=== PATIENT | male | born 1955 | race Caucasian/White ===

== ENCOUNTER 2017-06-30 13:49 | Emergency (ER) | payer MEDICAID, OTHER ==
--- NOTE | 2017-06-30 14:26 | RADIOLOGY REPORT (SQ) ---
EXAM DESCRIPTION: WRIST LEFT 3 VIEWS COMPLETED DATE/TIME: 06/30/2017 2:18 pm REASON FOR STUDY: fall COMPARISON: None. NUMBER OF VIEWS: Three views. TECHNIQUE: AP, lateral, and oblique radiographic images acquired of the left wrist. LIMITATIONS: None. FINDINGS: MINERALIZATION: Normal. BONES: There is an impacted fracture of distal radius with no angulation or significant displacement. On the AP view it appears that there is a coronal fracture component that extends to the articular surface. SOFT TISSUES: No soft tissue swelling. No foreign body. OTHER: No other significant finding. IMPRESSION: Impacted nondisplaced fracture of the distal radius. TECHNICAL DOCUMENTATION: JOB ID: [id number] [employer]- All Rights Reserved
[2017-06-30] MEDS ORDERED: OXYCODONE HCL SR 10 MG TABLET PO ONE (15:19)
--- NOTE | 2017-06-30 15:20 | ER Document Report ---
ED Hand/Wrist Injury - General Chief Complaint: Wrist Injury Stated Complaint: LEFT WRIST PAIN Time Seen by Provider: 06/30/17 15:05 Mode of Arrival: Ambulatory Information source: Patient Notes: Patient is a 61-year-old male who presents to the ER today for pain and swelling to his left wrist after falling yesterday, trying to catch himself by putting his left arm behind him, and injuring the left wrist in the process. Patient states that he just thought it was a sprain, so he placed a temporary skateboarding brace on his wrist last night but states that he cannot sleep all night because it does throbbed. He denies hitting his head or loss of consciousness. He denies any numbness or tingling. TRAVEL OUTSIDE OF THE [place] IN LAST 30 DAYS: No - Related Data Allergies/Adverse Reactions: No Known Allergies Allergy (Verified 06/30/17 14:09) Past Medical History - General Information source: Patient - Social History Smoking Status: Current Every Day Smoker Family History: None Pulmonary Medical History: Reports: Hx COPD Renal/ Medical History: Denies: Hx Peritoneal Dialysis Review of Systems - Review of Systems Constitutional: No symptoms reported EENT: No symptoms reported Cardiovascular: No symptoms reported Respiratory: No symptoms reported Gastrointestinal: No symptoms reported Genitourinary: No symptoms reported Male Genitourinary: No symptoms reported Musculoskeletal: See HPI Skin: No symptoms reported Hematologic/Lymphatic: No symptoms reported Neurological/Psychological: No symptoms reported Physical Exam - Vital signs Vitals: Temp Pulse Resp BP Pulse Ox 98.3 F 62 18 133/80 H 99 06/30/17 14:07 06/30/17 14:07 06/30/17 14:07 06/30/17 14:07 06/30/17 14:07 - Notes Notes: PHYSICAL EXAMINATION: GENERAL: In no acute distress. HEAD: Atraumatic, normocephalic. EYES: Pupils equal round and reactive to light, extraocular movements intact, sclera anicteric, conjunctiva are normal. NECK: Normal range of motion, supple without lymphadenopathy LUNGS: CTAB and equal. No wheezes rales or rhonchi. HEART: Regular rate and rhythm without murmurs ABDOMEN: Soft, no tenderness. No guarding, no rebound BACK: no vertebral tenderness, normal ROM GI/: no CVA tenderness EXTREMITIES: Decreased range of motion of the left wrist secondary to pain, tender to left medial and lateral wrist and edema noted, good capillary refill, good sensation no cyanosis. NEUROLOGICAL: Cranial nerves grossly intact. Normal sensory/motor exams. PSYCH: Normal mood, normal affect. SKIN: Warm, Dry, normal turgor, no rashes or lesions noted Course - Re-evaluation Re-evalutation: 06/30/17 16:50 Patient has an impacted distal radius fracture on x-ray. Not displaced otherwise. Patient was placed in finger traps for 15 minutes and then wrist was splinted. - Vital Signs Vital signs: Temp Pulse Resp BP Pulse Ox 98.3 F 62 18 133/80 H 99 06/30/17 14:07 06/30/17 14:07 06/30/17 14:07 06/30/17 14:07 06/30/17 14:07 Procedures - Immobilization Left Wrist Time completed: 16:51 Pre-Proc Neuro Vasc Exam: Normal Immobilizer type: Sugar tong Performed by: PCT Post-Proc Neuro Vasc Exam: Normal Alignment checked and good: Yes Discharge - Discharge Clinical Impression: Radius distal fracture Qualifiers: Encounter type: initial encounter Fracture type: closed Fracture morphology: unspecified fracture morphology Laterality: left Qualified Code(s): S52.502A - Unspecified fracture of the lower end of left radius, initial encounter for closed fracture Condition: Stable Disposition: HOME, SELF-CARE Additional Instructions: Return immediately for any new or worsening symptoms. Follow up with orthopedic doctor, call tomorrow to make followup appointment. Prescriptions: Oxycodone HCl [Oxycodone HCl 10 MG Tablet] 1 - 2 tab PO Q6H PRN #15 tablet PRN Reason: PAIN Referrals: TOMASA JIMENEZ MD [ACTIVE STAFF] - Follow up as needed
--- NOTE | 2017-06-30 17:10 | RADIOLOGY REPORT (SQ) ---
EXAM DESCRIPTION: WRIST LEFT 2 VIEWS COMPLETED DATE/TIME: 06/30/2017 4:56 pm REASON FOR STUDY: post reduction COMPARISON: 06/30/2017 NUMBER OF VIEWS: Two views. TECHNIQUE: AP and lateral radiographic images acquired of the left wrist. LIMITATIONS: None. FINDINGS: Two views of the left wrist in a splint show the alignment to remains satisfactory. IMPRESSION: Postreduction views of wrist. TECHNICAL DOCUMENTATION: JOB ID: [id number] [employer]- All Rights Reserved
[2017-06-30 17:41] VITALS: BP 129/92
== END 2017-06-30 17:41 | disposition home or self-care (01) ==
LOC: ER 13:49
PROC: 2W3DX1Z Immobilization of Left Lower Arm using Splint (ICD-10-PCS; principal; 2017-06-30)
DX: S52.502A Unspecified fracture of the lower end of left radius, initial encounter for closed fracture (principal); M25.532 Pain in left wrist; M79.89 Other specified soft tissue disorders; W19.XXXA Unspecified fall, initial encounter; F17.200 Nicotine dependence, unspecified, uncomplicated
CPT/HCPCS: 99283

== ENCOUNTER 2019-04-17 11:45 | Emergency (ER) | payer OTHER ==
--- NOTE | 2019-04-17 13:20 | ER Document Report ---
ED Medical Screen (RME) - General Chief Complaint: Groin Pain Stated Complaint: PAIN, SWELLING/POST HERNIA SURGERY Time Seen by Provider: 04/17/19 13:18 Mode of Arrival: Ambulatory Information source: Patient Notes: 63-year-old male presented to ED for complaint of right pelvic pain. He states that last month he had the mesh replaced on his right inguinal hernia repair. He states he ran into a door soon afterwards on Wednesday. He states since then his urine stream has been sideways and he has had more swelling and pain to the area. There is swelling to the area. Patient is alert oriented respirations regular and unlabored. He states he has a history of arthritis bad knees back shrapnel wounds multiple areas. He does use a vapor cigarettes and drinks occasionally. I have greeted and performed a rapid initial assessment of this patient. A comprehensive ED assessment and evaluation of the patient, analysis of test results and completion of medical decision making process will be conducted by an additional ED providers. Dictation of this chart was performed using voice recognition software; therefore, there may be some unintended grammatical errors. TRAVEL OUTSIDE OF THE [place] IN LAST 30 DAYS: No - Related Data Allergies/Adverse Reactions: No Known Allergies Allergy (Verified 06/30/17 14:09) Past Medical History - Social History Chew tobacco use (# tins/day): No Drug Abuse: None Pulmonary Medical History: Reports: Hx COPD Renal/ Medical History: Denies: Hx Peritoneal Dialysis Physical Exam - Vital signs Vitals: Temp Pulse Resp BP Pulse Ox 97.7 F 76 18 143/73 H 100 04/17/19 11:58 04/17/19 11:58 04/17/19 11:58 04/17/19 11:58 04/17/19 11:58 Course - Vital Signs Vital signs: Temp Pulse Resp BP Pulse Ox 97.7 F 76 18 143/73 H 100 04/17/19 11:58 04/17/19 11:58 04/17/19 11:58 04/17/19 11:58 04/17/19 11:58
[2019-04-17 13:54] LABS: AMORPHOUS SEDIMENT,URINE TRACE /HPF
[2019-04-17 13:54] LABS: ABSOLUTE LYMPHOCYTES (AUTO) 0.4 10^3/uL (0.5-4.7); ABSOLUTE MONOCYTES (AUTO) 0.4 10^3/uL (0.1-1.4); ABSOLUTE NEUT (AUTO) 3.5 10^3/uL (1.7-8.2); BASOPHILS % (AUTO) 0.7 % (0-2); EOSINOPHILS % (AUTO) 1.1 % (0-6); HEMATOCRIT 44.2 % (37.9-51.0); MEAN CORPUSCULAR HEMOGLOBIN 30.5 pg (27.0-33.4); MEAN CORPUSCULAR VOLUME 90 fl (80-97); MONOCYTES % (AUTO) 9.1 % (3-13); PLATELET COUNT 161 10^3/uL (150-450); RED BLOOD COUNT 4.92 10^6/uL (4.35-5.55); SEGMENTED NEUTROPHILS % (AUTO) 79.1 % (42-78); TOTAL CELLS COUNTED % (AUTO) 100 %; WHITE BLOOD COUNT 4.4 10^3/uL (4.0-10.5)
[2019-04-17 13:55] LABS: APPEARANCE,URINE CLOUDY; BILIRUBIN,URINE MODERATE (NEGATIVE); COLOR,URINE AMBER; GLUCOSE, URINE NEGATIVE (NEGATIVE); KETONES,URINE NEGATIVE (NEGATIVE); PROTEIN,URINE >=500 mg/dL (NEGATIVE); URINE SPECIFIC GRAVITY 1.032
[2019-04-17 13:56] LABS: LEUKOCYTE ESTERASE,URINE TRACE (NEGATIVE); NITRITE,URINE NEGATIVE (NEGATIVE)
[2019-04-17 14:14] LABS: ALANINE AMINOTRANSFERASE 35 U/L (21-72); ALBUMIN 4.5 g/dL (3.5-5.0); ALKALINE PHOSPHATASE 56 U/L (38-126); ANION GAP 6 (5-19); ASPARTATE AMINO TRANSFERASE 30 U/L (17-59); BILIRUBIN,DIRECT 0.2 mg/dL (0.0-0.4); BILIRUBIN,TOTAL 0.8 mg/dL (0.2-1.3); BLOOD UREA NITROGEN 16 mg/dL (7-20); CALCIUM 9.5 mg/dL (8.4-10.2); CARBON DIOXIDE 30 mmol/L (22-30); CHLORIDE 102 mmol/L (98-107); GLUCOSE 100 mg/dL (75-110); POTASSIUM 4.4 mmol/L (3.6-5.0)
--- NOTE | 2019-04-17 17:01 | RADIOLOGY REPORT (SQ) ---
EXAM DESCRIPTION: U/S NON-OB PELVIS LTD W/O DOP COMPLETED DATE/TIME: 04/17/2019 4:35 pm REASON FOR STUDY: Swelling to the site of right inguinal hernia mesh COMPARISON: None. TECHNIQUE: Dynamic and static grayscale images acquired of the right inguinal region transabdominal approach and recorded on PACS. Additional selected color Doppler and spectral images recorded. LIMITATIONS: None. FINDINGS: Patient has had recent right inguinal surgery for hernia repair. In the right inguinal kumar bcutaneous fat, there are 2 bandlike multi-septated fluid collections, 3 x 1 x 1 cm in size, and 2.6 x 2 x 1 cm. These are superficial to the mesh along the inguinal canal has shown on cine loop images . These could represent small hematomas. Abscess could not entirely be excluded. No recurrent aracelis ia by ultrasound. IMPRESSION: Right inguinal region demonstrates a grossly intact right inguinal hernia repair. There are 2 fluid collections in the right inguinal subcutaneous fat. These could represent small seromas , or hematomas. Abscess could not entirely be excluded. TECHNICAL DOCUMENTATION: JOB ID: [id number] [employer]- All Rights Reserved Rev-02/25 Reading location - IP/workstation name: [email or web address]
--- NOTE | 2019-04-17 18:07 | ER Document Report ---
HPI - HPI Patient complains to provider of: right groin pain Time Seen by Provider: 04/17/19 13:18 Onset/Duration: Gradual, Intermittent Quality of pain: Achy Severity: Mild Pain Level: 2 Context: 63 yr old male pt with the listed pmh, here for intermittent pain over his right groin incision where he had a right inguinal herniorrhaphy done for a right inguinal hernia 03-31-[address] recinos, since his surgery, but worse over the last several days after he accidentally bumped into the side of a door and hit the area gently on the edge of the door. states the area had a small amt clear drainage immediately after it happened but none since. states he has also has some mild urinary frequency, but no other urinary sx. no hx of diabetes. no other changes in meds or diet. states sx controlled some with ibuprofen but not really and he needs something stronger. 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 no other trauma or injury. he hasn't f/u with his surgeon since he was cleared post operatively per pt. no heavy lifting or swelling in the area or concern for recurrent hernias. normal bms. no other uti sx. no testicular pain/swelling, penile dc/rash/lesions, or concerns for stds. denies pain anywhere else. no abd pain. good po intake. no abd surgeries unless otherwise noted. no recent abx or steroids. hasn't taken anything else for sx. no hx of gerd, gb dz, pancreatitis, gi bleed, ulcers, ibs, renal stones or crohns. no sick contacts. no uri sx. no rash. no fevers. no bleeding. pt able to walk. no excessive nsaid use or etoh. no recent illness. denies changes in color or caliber of stool. no other associated sx. Associated Symptoms: denies: Chest pain, Diarrhea, Fever, Hurts to breath, Leg swelling, Nausea, Vomiting, Shortness of breath, Sweating, Weakness Exacerbated by: Movement Relieved by: Remaining still Similar symptoms previously: Yes Recently seen / treated by doctor: No - ROS Systems Reviewed and Negative: Yes All other systems reviewed and negative - to include 10, unless mentioned in the hpi Past Medical History - General Information source: Patient - Social History Smoking Status: Former Smoker Chew tobacco use (# tins/day): No Frequency of alcohol use: unknown Drug Abuse: None Lives with: Alone Family History: None Patient has suicidal ideation: No Patient has homicidal ideation: No Pulmonary Medical History: Reports: Hx COPD - not on o2 Neurological Medical History: Denies: Hx Cerebrovascular Accident, Hx Migraine, Hx Seizures Endocrine Medical History: Denies: Hx Diabetes Mellitus Type 1, Hx Diabetes Mellitus Type 2, Hx Hyperthyroidism, Hx Hypothyroidism Renal/ Medical History: Reports: Other - erectile dysfunction-prn viagra. Denies: Hx Benign Prostatic Hyperplasia, Hx End Stage Renal Disease, Hx Epididymitis, Hx Hemodialysis, Hx Hydrocele, Hx Kidney Stones, Hx Peritoneal Dialysis, Hx Renal Insufficiency, Hx Testicular Torsion, Hx Varicocele Malignancy Medical History: Reports None GI Medical History: Reports: None Musculoskeletal Medical History: Reports Hx Arthritis Skin Medical History: Reports None Infectious Medical History: Reports: None Past Surgical History: Reports: Hx Herniorrhaphy - right inguinal herniorrhaphy with mesh on 03-31-[address] recinos - Immunizations Immunizations up to date: Yes Vertical Provider Document - CONSTITUTIONAL Notes: >>>> PHYSICAL_EXAM: GENERAL_APPEARANCE: well_nourished, alert, cooperative, no_acute_distress, no obvious_discomfort. Pleasant, middle aged to elderly white male, smiling, speaking in full sentences, easily sitting up, in no sign of pain or resp distress, nontoxic, initially during my exam he appeared upset, angry, and unhappy with his care and wait time, which i did apologize for as it was a busy day in the ER, he was then pleasant towards me VITALS: reviewed, see vital signs table. HEAD: normocephalic. atraumatic. no resendiz signs. no raccoon eyes. EYES: PERRL, EOMI, (-)scleral icterus. NOSE: no_nasal_discharge. MOUTH: (-)decreased moisture. THROAT: no_tonsilar_inflammation/hypertrophy/exudate. no lymphadenopathy NECK: supple, no_neck_tenderness, full rom. full strength. no meningeal signs. BACK: no_back_tenderness. CHEST_WALL: no_chest_tenderness. LUNGS: no_wheezing, (-)accessory muscle use, good air exchange bilateral. HEART: normal_rate, normal_rhythm,, ABDOMEN: normal_BS, soft, abdomen-diffuse non-tender, (-)guarding, (-)rebound, no distension or peritoneal signs. neg murphys. neg mcburneys. neg heel strike. neg obturator. neg psoas. neg rovsign. no cva tenderness GENITALS: penis and testicular exam deferred as pt denies any lesions, swelling, pain, or complaints involving those. his right groin incision was examined and the incision was c/d/i and without complication or dehiscence. i do not palpate a drainable fluid collection or any grossly visible swelling. no lymphadenopathy. no hernias. no erythema, induration, fluctuation, bleeding, streaking, or discharge. no sign of cellulitis or complication. no bruising either or overlying skin changes to suggest trauma. RECTAL: deferred EXTREMITIES: strength 5/5 in all_extremities, good pulses in all_extremities, no_edema, no_swelling\tenderness. full rom. normal gait. brisk cap refill. good hand blackener. SKIN: warm, dry, good_color, no rash. no grossly visible overlying skin changes to suggest trauma unless otherwise noted. NEURO: motor_intact, sensory_intact. cranial nerves 2-12 intact, cerebellar fxn intact MENTAL_STATUS: normal_affect, speech_clear, oriented_X_3, responds_appropriately to questions. - INFECTION CONTROL TRAVEL OUTSIDE OF THE [place] IN LAST 30 DAYS: No Course - Re-evaluation Re-evalutation: pt here for post op right groin pain for the last near month, worse over the last few days after he bumped his right inguinal hernia mesh repair site on a door accidentally several days ago. had some clear drainage then none since. no purulence or bleeding or dehiscence. just persistent yet intermittent pain. hasn't f/u with his surgeon or any one for this and per pt was cleared by surgery for this; however, i do not have access to these records for review. his labs were unremarkable. ucx pending. advised will call with any abnormal results that require change in plan of care. triage note stated he had problems urinating, he tells me he has some frequency but no other urinary issues. he denies concerns for stds and doesn't want prophylactic tx. denies penile dc or testicular pain/swelling. his triage pelvic US showed two small fluid collections over the hernia mesh repair site that could be small hematomas vs seromas but was otherwise neg for any complication or anything acute per rad and reviewed by myself. he has no overlying skin changes or palpable fluid collection or lymph nodes or hernia on exam. no sign of cellulitis. the incision is c/d/i and without dehiscence. he apparently wasn't happy with his wait time and left the ed prior to me signing up to go see him and went outside and took some ibuprofen he had in his car which helped and then came back in. 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 he stated his pain was improved after taking that. he didn't want anything else for pain. pt informed of his findings. he has already gotten a few scripts of vicodin in the last month along with ultram which he didn't divulge initially and states he has only been taking ibuprofen. case discussed with ed attending, dr casas, who advised against any further narcotic pain meds at this time which i agree also with and dr casas advised he can cont warm compresses to the area and cont ibuprofen and he needs to drink more fluids/water. dr casas advised no further workup indicated at this time and pt needed to f/u closely with surgeon/pcp/urology for recheck. pt advised of this. advised no heavy lifting. he denies prior prostate issues. endorses normal bms. he has no abd ttp on exam. he is tolerating po well and well appearing. he wasn't happy he wasn't getting narcotic pain meds per nursing at tx and stormed out of the er per nursing report in no sign of pain what so ever. this behavior is concerning for drug seeking behavior. advised to drink plenty of water. will refill his ibuprofen 600mg tid. advised medication precautions with this. advised no other nsaids with this. warm compresses to the area. advised to f/u with pcp/urology/surgery in 1-2 days. return for any worsening symptoms. vss. well appearing. satting well on ra. neurononfocal. pt understands and agrees to plan but again was unhappy with his wait time and lack of narcotic prescription at tx. i did apologize to pt for his wait time when i went in to examine the pt. he initially was angry but then after i took the time to listen to him and hear his concerns he became and remained pleasant towards myself and was smiling and teresa ghing and no longer appeared angry when i left the room after informing him of his results, my diagnosis, and intended plan of care. On reexam, pt remained stable. nontoxic. well appearing. pain controlled. tolerating po. requesting to go home. neurononfocal. case discussed with ER Attending, Dr. casas, who directed and agrees with plan of care and advised no further workup indicated at this time and pt is stable for dc home with close f/u with pcp/specialist. Documentation achieved through voice recording which my lead to some occasional accidental typographical errors. Extensive efforts have been made to proof read documentation to make sure these are the least as possible. Category Date Time Status U/S NON-OB PELVIS LTD W/O DOP [US] Stat Exams 04/17/19 13:18 Completed CBC WITH DIFF [HEME] Stat Lab 04/17/19 13:27 Completed COMPREHENSIVE METABOLIC PANEL [CHEM] Stat Lab 04/17/19 13:27 Completed URINALYSIS [URIN] Stat Lab 04/17/19 13:24 Completed URINE CULTURE [MC] Stat Lab 04/17/19 13:24 Completed - Vital Signs Vital signs: Temp Pulse Resp BP Pulse Ox 97.7 F 76 18 143/73 H 100 04/17/19 11:58 04/17/19 11:58 04/17/19 11:58 04/17/19 11:58 04/17/19 11:58 Temp Pulse Pulse Resp BP BP Pulse Ox 04/17/19 19:00 97.7 F 66 16 134/87 H 97 04/17/19 11:58 97.7 F 76 18 143/73 H 100 - Laboratory Result Diagrams: 04/17/19 13:27 04/17/19 13:27 Laboratory results interpreted by me: 04/17/19 04/17/19 13:24 13:27 Seg Neutrophils % 79.1 H Lymphocytes % 10.0 L Absolute Lymphocytes 0.4 L Urine Protein >=500 H Urine Bilirubin MODERATE H Urine Urobilinogen 2.0 H Ur Leukocyte Esterase TRACE H Labs- Entire Visit 04/17/19 04/17/19 04/17/19 13:24 13:27 13:27 WBC 4.4 RBC 4.92 Hgb 15.0 Hct 44.2 MCV 90 MCH 30.5 MCHC 34.0 RDW 14.0 Plt Count 161 Seg Neutrophils % 79.1 H Lymphocytes % 10.0 L Monocytes % 9.1 Eosinophils % 1.1 Basophils % 0.7 Absolute Neutrophils 3.5 Absolute Lymphocytes 0.4 L Absolute Monocytes 0.4 Absolute Eosinophils 0.0 Absolute Basophils 0.0 Sodium 138.4 Potassium 4.4 Chloride 102 Carbon Dioxide 30 Anion Gap 6 BUN 16 Creatinine 0.55 Est GFR ( Amer) > 60 Est GFR (Non-Af Amer) > 60 Glucose 100 Calcium 9.5 Total Bilirubin 0.8 Direct Bilirubin 0.2 Neonat Total Bilirubin Not Reportable Neonat Direct Bilirubin Not Reportable Neonat Indirect Bili Not Reportable AST 30 ALT 35 Alkaline Phosphatase 56 Total Protein 7.0 Albumin 4.5 Urine Color KAMRYN Urine Appearance CLOUDY Urine pH 9.0 Ur Specific [place] 1.032 Urine Protein >=500 H Urine Glucose (UA) NEGATIVE Urine Ketones NEGATIVE Urine Blood NEGATIVE Urine Nitrite NEGATIVE Urine Bilirubin MODERATE H Urine Urobilinogen 2.0 H Ur Leukocyte Esterase TRACE H Urine RBC (Auto) 2 Squamous Epi Cells Auto <1 Amorphous Sediment Auto TRACE Urine Mucus (Auto) RARE Urine Ascorbic Acid NEGATIVE - Diagnostic Test Radiology reviewed: Image reviewed, Reports reviewed Radiology results interpreted by me: Pelvis Ultrasound 04/17/19 13:18 IMPRESSION: Right inguinal region demonstrates a grossly intact right inguinal hernia repair. There are 2 fluid collections in the right inguinal subcutaneous fat. These could represent small seromas or hematomas. Abscess could not entirely be excluded. Discharge - Discharge Clinical Impression: Post-operative pain, Right groin pain Condition: Good Disposition: HOME, SELF-CARE Instructions: Hernia ([facility]) Additional Instructions: Follow-up with PCP/surgeon 1 to 2 days. Return for any worsening symptoms. Do not take any other NSAIDs with the ibuprofen. Warm compresses to the area. We will call you with any abnormal results as discussed that require change in plan of care. no heavy lifting. Continue postop instructions as per your surgeon. drink plenty of water Prescriptions: Ibuprofen [Motrin 600 mg Tablet] 600 mg PO Q8 PRN #24 tablet PRN Reason: For Pain Referrals: [facility] [Primary [facility]] - Follow up as needed
[2019-04-17 19:48] VITALS: BP 134/87
== END 2019-04-17 19:35 | disposition home or self-care (01) ==
LOC: ER 11:45
DX: G89.18 Other acute postprocedural pain (principal); R10.30 Lower abdominal pain, unspecified; R35.0 Frequency of micturition; J44.9 Chronic obstructive pulmonary disease, unspecified; Z87.891 Personal history of nicotine dependence
CPT/HCPCS: 36415; 76857; 80053; 81001; 85025; 87086; 99284

== ENCOUNTER 2019-11-16 10:17 | Emergency (ER) | payer OTHER ==
[2019-11-16] MEDS ORDERED: NORMAL SALINE 1000 ML 1,000 ML IV ONE (11:06)
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
--- NOTE | 2019-11-16 12:21 | RADIOLOGY REPORT (SQ) ---
EXAM DESCRIPTION: WRIST RIGHT 3 VIEWS COMPLETED DATE/TIME: 11/16/2019 11:46 am REASON FOR STUDY: trauma COMPARISON: None. NUMBER OF VIEWS: Three views. TECHNIQUE: AP, lateral, and oblique radiographic images acquired of the right wrist. LIMITATIONS: None. FINDINGS: MINERALIZATION: Normal. BONES: Transverse fracture of the distal radius with volar angulation. Oblique nondisplaced fracture of the distal ulna. SOFT TISSUES: No soft tissue swelling. No foreign body. OTHER: No other significant finding. IMPRESSION: Fractures of the radius and ulna. TECHNICAL DOCUMENTATION: JOB ID: [id number] [employer]- All Rights Reserved Reading location - IP/workstation name: [email or web address]
--- NOTE | 2019-11-16 12:21 | RADIOLOGY REPORT (SQ) ---
EXAM DESCRIPTION: HAND RIGHT 3 VIEWS COMPLETED DATE/TIME: 11/16/2019 11:46 am REASON FOR STUDY: trauma COMPARISON: None. EXAM PARAMETERS: NUMBER OF VIEWS: Three views. TECHNIQUE: AP, lateral and oblique radiographic images acquired of the right hand. LIMITATIONS: None. FINDINGS: MINERALIZATION: Normal. BONES: Old 5th metacarpal fracture. On the oblique view it appears that there is a lucent line in th e head of the 5th metacarpal. JOINTS: No effusions. SOFT TISSUES: No soft tissue swelling. No foreign body. OTHER: No other significant finding. IMPRESSION: Cannot exclude a nondisplaced fracture in the head of the 5th metacarpal. TECHNICAL DOCUMENTATION: JOB ID: [id number] [employer]- All Rights Reserved Reading location - IP/workstation name: [email or web address]
[2019-11-16 12:38] LABS: ABSOLUTE EOSINOPHILS # (AUTO) 0.1 10^3/uL (0.0-0.6); ABSOLUTE LYMPHOCYTES (AUTO) 0.7 10^3/uL (0.5-4.7); ABSOLUTE MONOCYTES (AUTO) 0.9 10^3/uL (0.1-1.4); ABSOLUTE NEUT (AUTO) 5.9 10^3/uL (1.7-8.2); BASOPHILS % (AUTO) 0.5 % (0-2); EOSINOPHILS % (AUTO) 0.9 % (0-6); HEMATOCRIT 39.2 % (37.9-51.0); HEMOGLOBIN 14.2 g/dL (13.5-17.0); INTERNATIONAL RATION (INR) 1.14; LYMPHOCYTES % (AUTO) 8.7 % (13-45); MEAN CORPUSCULAR HEMOGLOBIN 32.3 pg (27.0-33.4); MEAN CORPUSCULAR HGB CONC 36.1 g/dL (32.0-36.0); MEAN CORPUSCULAR VOLUME 90 fl (80-97); MONOCYTES % (AUTO) 11.4 % (3-13); PLATELET COUNT 146 10^3/uL (150-450); PROTHROMBIN TIME 14.7 SEC (11.4-15.4); RED BLOOD COUNT 4.38 10^6/uL (4.35-5.55); RED CELL DISTRIBUTION WIDTH 13.6 % (11.5-14.0); SEGMENTED NEUTROPHILS % (AUTO) 78.5 % (42-78); TOTAL CELLS COUNTED % (AUTO) 100 %; WHITE BLOOD COUNT 7.5 10^3/uL (4.0-10.5)
[2019-11-16 12:52] LABS: ALBUMIN 4.5 g/dL (3.5-5.0); ALKALINE PHOSPHATASE 58 U/L (38-126); ANION GAP 10 (5-19); ASPARTATE AMINO TRANSFERASE 57 U/L (17-59); BILIRUBIN,TOTAL 1.1 mg/dL (0.2-1.3); BLOOD UREA NITROGEN 27 mg/dL (7-20); CALCIUM 9.6 mg/dL (8.4-10.2); CARBON DIOXIDE 24 mmol/L (22-30); CHLORIDE 105 mmol/L (98-107); GLUCOSE 104 mg/dL (75-110); POTASSIUM 3.6 mmol/L (3.6-5.0); TOTAL PROTEIN 7.1 g/dL (6.3-8.2)
[2019-11-16 12:54] LABS: ALCOHOL < 10 mg/dL (NONE DETECTED)
[2019-11-16] MEDS ORDERED: LIDOCAINE 2% INJ (20 MG/ML) 20 ML MDV INJ ONE (14:24)
[2019-11-16] MEDS ORDERED: HYDROMORPHONE HCL INJ/PF 2 MG/ML AMPULE IV ONE (14:24)
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
--- NOTE | 2019-11-16 16:34 | RADIOLOGY REPORT (SQ) ---
EXAM DESCRIPTION: CT HEAD WITHOUT COMPLETED DATE/TIME: 11/16/2019 3:33 pm REASON FOR STUDY: trauma COMPARISON: CT facial bones same date TECHNIQUE: Axial images acquired through the brain without intravenous contrast. Images reviewed wi th bone, brain and subdural windows. Additional sagittal and coronal reconstructions were generated. Images stored on PACS. All CT scanners at this facility use dose modulation, iterative reconstruction, and/or weight based d osing when appropriate to reduce radiation dose to as low as reasonably achievable (ALARA). [facility]: Dose Right [facility]: CareDose [facility]: Dose Right [facility]: Teradose 4D [facility]: [employer] RADIATION DOSE: 53 mGy LIMITATIONS: Motion artifact FINDINGS: VENTRICLES: Normal size and contour. CEREBRUM: No masses. No hemorrhage. No midline shift. No evidence for acute infarction. Normal gra y/white matter differentiation. No areas of low density in the white matter. CEREBELLUM: No masses. No hemorrhage. No alteration of density. No evidence for acute infarction. EXTRAAXIAL SPACES: No fluid collections. No masses. ORBITS AND GLOBE: No intra- or extraconal masses. Normal contour of globe without masses. CALVARIUM: No fracture. PARANASAL SINUSES: No fluid or mucosal thickening. SOFT TISSUES: No mass or hematoma. OTHER: Old nasal bone fractures IMPRESSION: Motion artifact. No acute findings EVIDENCE OF ACUTE STROKE: NO. COMMENT: Quality ID # 436: Final reports with documentation of one or more dose reduction techniques (e.g., Automated exposure control, adjustment of the mA and/or kV according to patient size, use of iterative reconstruction technique) TECHNICAL DOCUMENTATION: JOB ID: [id number] [employer]- All Rights Reserved Reading location - IP/workstation name: [email or web address]
--- NOTE | 2019-11-16 16:35 | RADIOLOGY REPORT (SQ) ---
EXAM DESCRIPTION: CT CERVICAL SPINE WITHOUT COMPLETED DATE/TIME: 11/16/2019 3:33 pm REASON FOR STUDY: trauma COMPARISON: CT brain and facial bones same date TECHNIQUE: Axial images acquired through the cervical spine without intravenous contrast. Images re viewed with lung, soft tissue and bone windows. Reconstructed coronal and sagittal MPR images review ed. Images stored on PACS. All CT scanners at this facility use dose modulation, iterative reconstruction, and/or weight based d osing when appropriate to reduce radiation dose to as low as reasonably achievable (ALARA). [facility]: Dose Right [facility]: CareDose [facility]: Dose Right [facility]: Teradose 4D [facility]: [employer] RADIATION DOSE: CT Rad equipment meets quality standard of care and radiation dose reduction techniq ues were employed. CTDIvol: 20.8 - 53.2 mGy. DLP: 3287 mGy-cm. mGy. LIMITATIONS: Motion artifact FINDINGS: ALIGNMENT: Anatomic. MINERALIZATION: Normal. VERTEBRAL BODIES: No fractures or dislocation. DISCS: No significant disc disease. FACETS, LATERAL MASSES, POSTERIOR ELEMENTS: No fractures. No dislocation. No acute findings. HARDWARE: None in the spine. VISUALIZED RIBS: No fractures. LUNG APICES AND SOFT TISSUES: No significant or acute findings. OTHER: No other significant finding. IMPRESSION: Mild motion artifact. No acute findings TECHNICAL DOCUMENTATION: JOB ID: [id number] Quality ID # [id number]: Final reports with documentation of one or more dose reduction techniques (e.g., Au tomated exposure control, adjustment of the mA and/or kV according to patient size, use of iterative reconstruction technique) 2010 [employer]- All Rights Reserved Reading location - IP/workstation name: [email or web address]
--- NOTE | 2019-11-16 16:40 | RADIOLOGY REPORT (SQ) ---
EXAM DESCRIPTION: CT FACIAL AREA WITHOUT COMPLETED DATE/TIME: 11/16/2019 3:33 pm REASON FOR STUDY: trauma COMPARISON: CT brain, CT cervical spine same date TECHNIQUE: Noncontrasted images through the facial bones and orbits windowed for bone and soft tissu e. Additional coronal and sagittal reconstructed images reviewed. All images stored on PACS. All CT scanners at this facility use dose modulation, iterative reconstruction, and/or weight based d osing when appropriate to reduce radiation dose to as low as reasonably achievable (ALARA). [facility]: Dose Right [facility]: CareDose [facility]: Dose Right [facility]: Teradose 4D [facility]: [employer] RADIATION DOSE: 30 mGy. LIMITATIONS: Mild motion artifact FINDINGS: FACIAL BONES: Old bilateral nasal bone fractures. No acute fracture ORBITS: Intact. No fracture. Symmetric intact globes and retroorbital soft tissues. PARANASAL SINUSES: Clear. No significant mucosal thickening, mass or fluid. No nasal polyps. Maxill jalyn sinus outlets are patent. SOFT TISSUES: Right frontal and preseptal orbital soft tissue swelling. INFERIOR BRAIN: Limited view. No acute findings. OTHER: No other significant finding. IMPRESSION: No acute fracture. TECHNICAL DOCUMENTATION: JOB ID: [id number] Quality ID # [id number]: Final reports with documentation of one or more dose reduction techniques (e.g., Au tomated exposure control, adjustment of the mA and/or kV according to patient size, use of iterative reconstruction technique) 2010 [employer]- All Rights Reserved Reading location - IP/workstation name: [email or web address]
--- NOTE | 2019-11-16 16:48 | RADIOLOGY REPORT (SQ) ---
EXAM DESCRIPTION: CT CHEST WITH; CT ABD/PELVIS WITH IV ONLY COMPLETED DATE/TIME: 11/16/2019 3:37 pm REASON FOR STUDY: trauma COMPARISON: None. CONTRAST TYPE AND DOSE: contrast/concentration: Isovue 350.00 mg/ml; Total Contrast Delivered: 75.0 ml; Total Saline Delivered: 62.5 ml RENAL FUNCTION: Creatinine 0.8 TECHNIQUE: CT scan of the chest performed using helical scanning technique with dynamic intravenous contrast injection. Images reviewed with lung, soft tissue and bone windows. Reconstructed coronal a nd sagittal MPR images reviewed. All images stored on PACS. CT scan of the abdomen and pelvis performed with intravenous and without oral contrastusing helical s paras technique with dynamic intravenous contrast injection. Images reviewed with lung, soft tissu e and bone windows. Reconstructed coronal and sagittal MPR images reviewed. Delayed images for eval uation of the urinary system also acquired and evaluated. All images stored on PACS. All CT scanners at this facility use dose modulation, iterative reconstruction, and/or weight based d osing when appropriate to reduce radiation dose to as low as reasonably achievable (ALARA). [facility]: Dose Right [facility]: CareDose [facility]: Dose Right [facility]: Teradose 4D [facility]: [employer] RADIATION DOSE: CT Rad equipment meets quality standard of care and radiation dose reduction techniq ues were employed. CTDIvol: 5.3 - 7.0 mGy. DLP: 1209 mGy-cm. . LIMITATIONS: Motion artifact FINDINGS: CHEST: LUNGS AND PLEURA: No opacities, nodules, masses. No pneumothorax. No effusions. HILAR AND MEDIASTINAL STRUCTURES: No identified masses or abnormal nodes. HEART AND VASCULAR STRUCTURES: No aneurysm or dissection. No central pulmonary emboli. No pericardi al effusion. HARDWARE: None. THYROID AND OTHER SOFT TISSUES: No masses. No adenopathy. BONES: Old healed left anterior 3rd and 4th rib fractures. OTHER: No other significant finding. ABDOMEN AND PELVIS: LIVER: Normal size. No masses. No dilated ducts. SPLEEN: 16 cm in length. PANCREAS: No masses. No significant calcifications. No adjacent inflammation or peripancreatic fluid collections. Pancreatic duct not dilated. GALLBLADDER: No identified stones by CT criteria. No inflammatory changes to suggest cholecystitis. ADRENAL GLANDS: No significant masses or asymmetry. RIGHT KIDNEY AND URETER: No solid masses. No significant calcification. No hydronephrosis or hydroure ter. LEFT KIDNEY AND URETER: No solid masses. No significant calcification. No hydronephrosis or hydrouret er. AORTA AND VESSELS: No aneurysm. No dissection. Renal arteries, SMA, celiac without stenosis. RETROPERITONEUM: No retroperitoneal adenopathy, hemorrhage or masses. BOWEL AND PERITONEAL CAVITY: No masses or inflammatory changes. No free fluid or peritoneal masses. APPENDIX: Not identified ABDOMINAL WALL: No masses. No hernias. PELVIS: No mass or free fluid. Normal bladder. BONES: No significant or acute findings. OTHER: No other significant finding. IMPRESSION: No acute findings Splenomegaly TECHNICAL DOCUMENTATION: JOB ID: [id number] Quality ID # [id number]: Final reports with documentation of one or more dose reduction techniques (e.g., Au tomated exposure control, adjustment of the mA and/or kV according to patient size, use of iterative reconstruction technique) 2010 [employer]- All Rights Reserved Reading location - IP/workstation name: [email or web address]
--- NOTE | 2019-11-16 16:48 | RADIOLOGY REPORT (SQ) ---
EXAM DESCRIPTION: CT CHEST WITH; CT ABD/PELVIS WITH IV ONLY COMPLETED DATE/TIME: 11/16/2019 3:37 pm REASON FOR STUDY: trauma COMPARISON: None. CONTRAST TYPE AND DOSE: contrast/concentration: Isovue 350.00 mg/ml; Total Contrast Delivered: 75.0 ml; Total Saline Delivered: 62.5 ml RENAL FUNCTION: Creatinine 0.8 TECHNIQUE: CT scan of the chest performed using helical scanning technique with dynamic intravenous contrast injection. Images reviewed with lung, soft tissue and bone windows. Reconstructed coronal a nd sagittal MPR images reviewed. All images stored on PACS. CT scan of the abdomen and pelvis performed with intravenous and without oral contrastusing helical s paras technique with dynamic intravenous contrast injection. Images reviewed with lung, soft tissu e and bone windows. Reconstructed coronal and sagittal MPR images reviewed. Delayed images for eval uation of the urinary system also acquired and evaluated. All images stored on PACS. All CT scanners at this facility use dose modulation, iterative reconstruction, and/or weight based d osing when appropriate to reduce radiation dose to as low as reasonably achievable (ALARA). [facility]: Dose Right [facility]: CareDose [facility]: Dose Right [facility]: Teradose 4D [facility]: [employer] RADIATION DOSE: CT Rad equipment meets quality standard of care and radiation dose reduction techniq ues were employed. CTDIvol: 5.3 - 7.0 mGy. DLP: 1209 mGy-cm. . LIMITATIONS: Motion artifact FINDINGS: CHEST: LUNGS AND PLEURA: No opacities, nodules, masses. No pneumothorax. No effusions. HILAR AND MEDIASTINAL STRUCTURES: No identified masses or abnormal nodes. HEART AND VASCULAR STRUCTURES: No aneurysm or dissection. No central pulmonary emboli. No pericardi al effusion. HARDWARE: None. THYROID AND OTHER SOFT TISSUES: No masses. No adenopathy. BONES: Old healed left anterior 3rd and 4th rib fractures. OTHER: No other significant finding. ABDOMEN AND PELVIS: LIVER: Normal size. No masses. No dilated ducts. SPLEEN: 16 cm in length. PANCREAS: No masses. No significant calcifications. No adjacent inflammation or peripancreatic fluid collections. Pancreatic duct not dilated. GALLBLADDER: No identified stones by CT criteria. No inflammatory changes to suggest cholecystitis. ADRENAL GLANDS: No significant masses or asymmetry. RIGHT KIDNEY AND URETER: No solid masses. No significant calcification. No hydronephrosis or hydroure ter. LEFT KIDNEY AND URETER: No solid masses. No significant calcification. No hydronephrosis or hydrouret er. AORTA AND VESSELS: No aneurysm. No dissection. Renal arteries, SMA, celiac without stenosis. RETROPERITONEUM: No retroperitoneal adenopathy, hemorrhage or masses. BOWEL AND PERITONEAL CAVITY: No masses or inflammatory changes. No free fluid or peritoneal masses. APPENDIX: Not identified ABDOMINAL WALL: No masses. No hernias. PELVIS: No mass or free fluid. Normal bladder. BONES: No significant or acute findings. OTHER: No other significant finding. IMPRESSION: No acute findings Splenomegaly TECHNICAL DOCUMENTATION: JOB ID: [id number] Quality ID # [id number]: Final reports with documentation of one or more dose reduction techniques (e.g., Au tomated exposure control, adjustment of the mA and/or kV according to patient size, use of iterative reconstruction technique) 2010 [employer]- All Rights Reserved Reading location - IP/workstation name: [email or web address]
--- NOTE | 2019-11-16 16:49 | RADIOLOGY REPORT (SQ) ---
EXAM DESCRIPTION: WRIST RIGHT 2 VIEWS COMPLETED DATE/TIME: 11/16/2019 3:56 pm REASON FOR STUDY: post red COMPARISON: 11/16/2019. NUMBER OF VIEWS: Two views. TECHNIQUE: AP and lateral radiographic images acquired of the right wrist. LIMITATIONS: None. FINDINGS: MINERALIZATION: Normal. BONES: Fractures of the distal radius and ulna. Slight improved alignment following closed reduction . SOFT TISSUES: No soft tissue swelling. No foreign body. OTHER: No other significant finding. IMPRESSION: SLIGHT IMPROVED ALIGNMENT FOLLOWING CLOSED REDUCTION. TECHNICAL DOCUMENTATION: JOB ID: [id number]- All Rights Reserved Reading location - IP/workstation name: [email or web address]
[2019-11-16 17:09] VITALS: BP 140/71
== END 2019-11-16 17:05 | disposition home or self-care (01) ==
LOC: ER 10:17
DX: S52.501A Unspecified fracture of the lower end of right radius, initial encounter for closed fracture (principal); S52.601A Unspecified fracture of lower end of right ulna, initial encounter for closed fracture; S20.212A Contusion of left front wall of thorax, initial encounter; R07.81 Pleurodynia; H57.11 Ocular pain, right eye; V23.4XXA Motorcycle driver injured in collision with car, pick-up truck or van in traffic accident, initial encounter; F17.200 Nicotine dependence, unspecified, uncomplicated; J44.9 Chronic obstructive pulmonary disease, unspecified
CPT/HCPCS: 25605; 99284; 96361; 96374; 36415; 80307; 85025; 85610; 80053; 73130; 73100; 73110; 70450; 70486; 71260; 72125; 74177; J3490; J1170; J7030

== ENCOUNTER 2019-12-04 11:07 | Day surgery (SDC) | payer OTHER ==
[~2019-12-04 11:07] MED LIST: CEFAZOLIN SODIUM 2 GM in DEXTROSE 5%-WATER 100 ML IV PRN
--- NOTE | 2019-12-04 11:54 | RADIOLOGY REPORT (SQ) ---
EXAM DESCRIPTION: CHEST SINGLE VIEW COMPLETED DATE/TIME: 12/04/2019 11:41 am REASON FOR STUDY: PREOP COMPARISON: PA and lateral views of the chest from 10/08/2016. EXAM PARAMETERS: NUMBER OF VIEWS: One view. TECHNIQUE: An AP view of the chest was obtained. RADIATION DOSE: NA LIMITATIONS: None. FINDINGS: LUNGS AND PLEURA: Findings of COPD without a superimposed consolidation, pleural effusion or pneumothorax. MEDIASTINUM AND HILAR STRUCTURES: No mediastinal or hilar contour abnormality. HEART AND VASCULAR STRUCTURES: The cardiac silhouette and pulmonary vasculature are within normal [place] its. BONES: No acute findings. HARDWARE: None in the chest. OTHER: No other finding. IMPRESSION: COPD without a superimposed acute cardiopulmonary process. TECHNICAL DOCUMENTATION: JOB ID: [id number] 2010 [employer]- All Rights Reserved Reading location - IP/workstation name: [email or web address]
[2019-12-04 12:20] LABS: APPEARANCE,URINE CLOUDY; BILIRUBIN,URINE NEGATIVE (NEGATIVE); COLOR,URINE AMBER; GLUCOSE, URINE NEGATIVE (NEGATIVE); KETONES,URINE NEGATIVE (NEGATIVE); LEUKOCYTE ESTERASE,URINE NEGATIVE (NEGATIVE); NITRITE,URINE NEGATIVE (NEGATIVE); PROTEIN,URINE 100 mg/dL (NEGATIVE); URINE SPECIFIC GRAVITY 1.014; UROBILINOGEN,URINE NEGATIVE mg/dL (<2.0)
[2019-12-04 12:25] LABS: HEMATOCRIT 37.1 % (37.9-51.0); HEMOGLOBIN 13.2 g/dL (13.5-17.0); MEAN CORPUSCULAR HEMOGLOBIN 32.2 pg (27.0-33.4); MEAN CORPUSCULAR HGB CONC 35.4 g/dL (32.0-36.0); MEAN CORPUSCULAR VOLUME 91 fl (80-97); PLATELET COUNT 162 10^3/uL (150-450); RED BLOOD COUNT 4.08 10^6/uL (4.35-5.55); WHITE BLOOD COUNT 3.3 10^3/uL (4.0-10.5)
[2019-12-04 12:47] LABS: ANION GAP 6 (5-19); BLOOD UREA NITROGEN 22 mg/dL (7-20); CALCIUM 9.3 mg/dL (8.4-10.2); CARBON DIOXIDE 25 mmol/L (22-30); CHLORIDE 107 mmol/L (98-107); GLUCOSE 87 mg/dL (75-110); POTASSIUM 4.1 mmol/L (3.6-5.0)
[2019-12-04] MEDS ORDERED: FENTANYL CITRATE INJ/PF 250 MCG/5 ML AMPULE ONE (13:24)
[2019-12-04] MEDS ORDERED: MIDAZOLAM 2 MG/2 ML INJ ONE (13:24)
[2019-12-04] MEDS ORDERED: DEXAMETHASONE SOD PHOSPHATE INJ 4 MG/1 ML VIAL ONE (13:25)
[2019-12-04] MEDS ORDERED: ONDANSETRON HCL INJ/PF 4 MG/2 ML SDV ONE (13:25)
[2019-12-04] MEDS ORDERED: PROPOFOL INJ 200 MG/20 ML VIAL IV ONE (13:25)
[2019-12-04] MEDS ORDERED: BUPIVACAINE HCL 0.5%-EPI 1:200000 INJ/PF 30 ML VIAL ONE (13:45)
[2019-12-04] MEDS ORDERED: SUCCINYLCHOLINE CHLORIDE INJ 200 MG/10 ML VIAL ONE (13:48)
[2019-12-04] MEDS ORDERED: DIPHENHYDRAMINE HCL 50 MG/ML VIAL IV PRN (14:25)
[2019-12-04] MEDS ORDERED: FENTANYL CITRATE INJ/PF 100 MCG/2 ML AMPUL IV PRN ×3 (14:25)
[2019-12-04] MEDS ORDERED: MEPERIDINE HCL/PF INJ 25 MG/1 ML DISP.SYRIN IV PRN (14:25)
[2019-12-04] MEDS ORDERED: PROMETHAZINE HCL INJ 25 MG/1 ML VIAL IV PRN (14:25)
--- NOTE | 2019-12-04 14:51 | Operative Report ---
Operative Report DATE OF SURGERY: 12/04/19 PREOPERATIVE DIAGNOSIS: Right distal radius fracture OPERATION: Open reduction internal fixation right distal radius fracture SURGEON: SCOTT CORNEJO ANESTHESIA: GA ESTIMATED BLOOD LOSS: Minimal PROCEDURE: With the patient supine the operative for the right upper extremities prepped and draped sterile fashion. Limb is elevated for exsanguination tourniquet inflated 250 torr. A standard volar approach to the radius is taken between the flexor carpi radialis and the neurovascular bundle. The pronator quadratus is retracted ulnarly and the underlying fracture is identified. Is mobilized and subsequently reduced. The reduction is head held with a radial styloid pin. Subsequently a [place] distal volar radial plate medium with short length is a pplied to the volar surface of the radius and secured with 4 screws proximally and 4 screws distally. Fracture reduction and hardware placement are checked fluoroscopically and felt to be adequate. Pins were removed. The wound is irrigated. Tourniquet is deflated and hemostasis obtained electrocautery. Closed in layers interrupted Vicryl followed by nylon. A sterile compressive dressing posterior plaster splint were applied and the patient was returned to the PACU in satisfactory condition.
--- NOTE | 2019-12-04 14:53 | Discharge Summary ---
Discharge Summary (SDC) - Discharge Final Diagnosis: Right distal radius fracture Date of Surgery: 12/04/19 Discharge Date: 12/04/19 Condition: Good Treatment or Instructions: Elevate right upper extremity on pillows. [facility]errals: [facility] [[facility]] - Discharge Diet: Regular Respiratory Treatments at Home: Deep Breathing/Coughing Discharge Activity: Balance Activity w/Rest, No tub bath Home Care Assistance: None Needed Report the Following to Your Physician Immediately: Shortness of Breath, Fever over 101 Degrees, Drainage-Foul Smelling
--- NOTE | 2019-12-04 15:33 | RADIOLOGY REPORT (SQ) ---
EXAM DESCRIPTION: NO CHG FLUORO; WRIST RIGHT 2 VIEWS COMPLETED DATE/TIME: 12/04/2019 3:14 pm REASON FOR STUDY: ORIF RIGHT WRIST ASST WITH FLUORO IN OR COMPARISON: None. FLUOROSCOPY TIME: 32 seconds 2 Images saved to PACS LIMITATIONS: None. PROCEDURE: ORIF right radius. FINDINGS: Images from fluoro document placement of a volar compression plate on the distal radius. Multiple screws are present. IMPRESSION: ORIF right radius. Refer to operative note further information. COMMENT: PQRS 6045F: Fluoroscopy time of the procedure is documented in the report. TECHNICAL DOCUMENTATION: JOB ID: [id number] 2010 [employer]- All Rights Reserved Reading location - IP/workstation name: [email or web address]
--- NOTE | 2019-12-04 15:33 | RADIOLOGY REPORT (SQ) ---
EXAM DESCRIPTION: NO CHG FLUORO; WRIST RIGHT 2 VIEWS COMPLETED DATE/TIME: 12/04/2019 3:14 pm REASON FOR STUDY: ORIF RIGHT WRIST ASST WITH FLUORO IN OR COMPARISON: None. FLUOROSCOPY TIME: 32 seconds 2 Images saved to PACS LIMITATIONS: None. PROCEDURE: ORIF right radius. FINDINGS: Images from fluoro document placement of a volar compression plate on the distal radius. Multiple screws are present. IMPRESSION: ORIF right radius. Refer to operative note further information. COMMENT: PQRS 6045F: Fluoroscopy time of the procedure is documented in the report. TECHNICAL DOCUMENTATION: JOB ID: [id number] 2010 [employer]- All Rights Reserved Reading location - IP/workstation name: [email or web address]
[2019-12-04] MEDS ORDERED: MEPERIDINE HCL/PF INJ 25 MG/1 ML DISP.SYRIN ONE (15:46)
[2019-12-04] MEDS: FENTANYL CITRATE INJ/PF 100 MCG/2 ML AMPUL ONE ×2 (15:50→16:01)
[2019-12-04] MEDS ORDERED: OXYCODONE-ACETAMINOPHEN 5-325 MG TABLET ONE (16:43)
[2019-12-04] MEDS ORDERED: OXYCODONE-ACETAMINOPHEN 5-325 MG TABLET PO ONE (17:30)
[2019-12-04 17:33] VITALS: BP 166/73
--- NOTE | 2019-12-04 18:12 | EKG REPORT ---
SEVERITY:- ABNORMAL ECG - SINUS RHYTHM PROBABLE ANTEROLATERAL INFARCT, OLD : Confirmed by: Maribell Bruno MD 04-Dec-2019 18:11:38
== END 2019-12-04 17:50 | disposition home or self-care (01) ==
LOC: OROUT 11:07
PROVIDERS: ATTEND Orthopaedic Surgery
DX: S52.531A Colles' fracture of right radius, initial encounter for closed fracture (principal); S52.611A Displaced fracture of right ulna styloid process, initial encounter for closed fracture; V00.148A Other scooter (nonmotorized) accident, initial encounter; Z79.899 Other long term (current) drug therapy; B18.2 Chronic viral hepatitis C
CPT/HCPCS: 36415; 85027; 80048; 81001; 71045; 73100; 93005; 93010; 01830; 25607; J2250; J3490; J0690; J1100; J3010 ×2; J2175; J0330; J2405; J7060; J2704

== ENCOUNTER 2020-06-14 16:01 | Emergency (ER) | payer OTHER ==
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
--- NOTE | 2020-06-14 18:19 | RADIOLOGY REPORT (SQ) ---
EXAM DESCRIPTION: CT ABD/PELVIS NO ORAL OR IV IMAGES COMPLETED DATE/TIME: 06/14/2020 5:11 pm REASON FOR STUDY: Ingestion of a bag of drugs COMPARISON: None. TECHNIQUE: CT scan of the abdomen and pelvis performed without intravenous or oral contrast. Images reviewed with lung, soft tissue, and bone windows. Reconstructed coronal and sagittal MPR images revi ewed. All images stored on PACS. All CT scanners at this facility use dose modulation, iterative reconstruction, and/or weight based d osing when appropriate to reduce radiation dose to as low as reasonably achievable (ALARA). [facility]: Dose Right [facility]: CareDose [facility]: Dose Right [facility]: Teradose 4D [facility]: Smart Altitude Co RADIATION DOSE: CT Rad equipment meets quality standard of care and radiation dose reduction techniq ues were employed. CTDIvol: 5.1 mGy. DLP: 249 mGy-cm.mGy. LIMITATIONS: 11/16/2019 FINDINGS: LOWER CHEST: No significant findings. No nodules or infiltrates. NON-CONTRASTED LIVER, SPLEEN, ADRENALS: Splenomegaly, chronic. Spleen measures up to 18 cm craniocau skyler. PANCREAS: No masses. No peripancreatic inflammatory changes. GALLBLADDER: No identified stones by CT criteria. No inflammatory changes to suggest cholecystitis. RIGHT KIDNEY AND URETER: No solid masses. No significant calcification. No hydronephrosis or hydroure ter. LEFT KIDNEY AND URETER: No solid masses. No significant calcification. No hydronephrosis or hydrouret er. AORTA AND RETROPERITONEUM: No aneurysm. No retroperitoneal masses or adenopathy. BOWEL AND PERITONEAL CAVITY: No gross ingested radiopaque foreign bodies identified. No bowel obstru ction or inflammatory changes. No ascites or abnormal gas. APPENDIX: Normal. PELVIS, BLADDER, AND ABDOMINAL WALL:No abnormal masses. No free fluid. Bladder normal. BONES: No significant findings. OTHER: No other significant finding. IMPRESSION: Splenomegaly, as before. No acute findings. TECHNICAL DOCUMENTATION: JOB ID: [id number] Quality ID # [id number]: Final reports with documentation of one or more dose reduction techniques (e.g., Au tomated exposure control, adjustment of the mA and/or kV according to patient size, use of iterative reconstruction technique) 2010 [employer]- All Rights Reserved Reading location - IP/workstation name: [email or web address]
[2020-06-14] MEDS ORDERED: ACETAMINOPHEN 325 MG TABLET PO ONE (18:30)
--- NOTE | 2020-06-14 19:32 | RADIOLOGY REPORT (SQ) ---
EXAM DESCRIPTION: RadLex: CT HEAD WITHOUT IV CONTRAST CLINICAL HISTORY: 64 years Male; head injury; TECHNIQUE: Noncontrast CT head. All CT scans at this facility use dose modulation, iterative reconstruction, and/or weight based dosing when appropriate to reduce radiation dose to as low as reasonably achievable. COMPARISON: None. FINDINGS: Phipps matter, white matter, ventricles, and cisterns are within normal limits. No acute hemorrhage or mass effect. Visualized portions of paranasal sinuses and mastoids are clear. No acute calvarial fractures. IMPRESSION: 1. No acute intracranial findings.
--- NOTE | 2020-06-14 19:32 | RADIOLOGY REPORT (SQ) ---
EXAM DESCRIPTION: RadLex: CT CERVICAL SPINE WITHOUT IV CONTRAST CLINICAL HISTORY: 64 years Male; injury; TECHNIQUE: Noncontrast cervical spine CT with sagittal and coronal reconstructions. All CT scans at this facility use dose modulation, iterative reconstruction, and/or weight based dosing when appropriate to reduce radiation dose to as low as reasonably achievable. COMPARISON: None FINDINGS: A fracture extends obliquely through the base of the odontoid into the posterior margin of the C2 body. However, there is sclerosis and some irregularity along the fracture plane, suggesting an old injury. Thickening along the posterior longitudinal ligament posterior to the C2 body and the odontoid is up to 3 mm in thickness. Cannot exclude posterior epidural hemorrhage. Atlantoodontoid distance is normal, less than 1 mm. There is estimated 4 mm posterior displacement of the anterior margin of the odontoid relative to the C2 body. At the atlantoaxial joints on each side, there is 5 mm anterior subluxation of C2 relative to C1. C2-C3: Mild facet arthropathy, without subluxation. C3-C4: Facet arthropathy. No subluxation. C5-C6: Facet arthropathy. C6-C7: Facet arthropathy. Uncovertebral osteophytes with bilateral foraminal stenosis. There is no acute fracture of the cervical spine. No epidural hematoma. IMPRESSION: 1. C2 fracture with subluxation, as described. This is likely an old injury. Due to subluxation and possible epidural hemorrhage, there may be acute ligamentous injury at the site of previous incompletely fused C2 fracture. 2. No additional cervical spine fractures.
[2020-06-14 19:57] VITALS: BP 134/83
== END 2020-06-14 20:03 | disposition home or self-care (01) ==
LOC: ER 16:01
DX: S00.01XA Abrasion of scalp, initial encounter (principal); S00.93XA Contusion of unspecified part of head, initial encounter; S16.1XXA Strain of muscle, fascia and tendon at neck level, initial encounter; R22.0 Localized swelling, mass and lump, head; Y35.893A Legal intervention involving other specified means, suspect injured, initial encounter; Y93.89 Activity, other specified; F17.200 Nicotine dependence, unspecified, uncomplicated; F12.10 Cannabis abuse, uncomplicated; I25.10 Atherosclerotic heart disease of native coronary artery without angina pectoris; I10 Essential (primary) hypertension; J44.9 Chronic obstructive pulmonary disease, unspecified
CPT/HCPCS: 70450; 72125; 74176; 99285